=== PATIENT | male | born 1980 ===

== ENCOUNTER 2018-09-27 12:59 | Emergency (ER) | payer OTHER ==
[2018-09-27 13:16] VITALS: BP 109/73; PULSE 79; RESP 18; TEMP 97.8; O2SAT 97; BMI 31.8
--- NOTE | 2018-09-27 13:35 | ED PDOC ---
HPI: Back Time Seen by Provider: 09/27/18 13:15 Chief Complaint (Nursing): Back Pain Chief Complaint (Provider): Back Pain History Per: Patient History/Exam Limitations: no limitations Onset/Duration Of Symptoms: Days (3x months) Current Symptoms Are (Timing): Still Present Severity: Moderate Associated Symptoms: None Additional Complaint(s): 38 year old male with no pertinent past medical history presents to the ED for an evaluation of back pain that has been ongoing for 3x months. Patient reports that he does a pulling motion at work, but has been resting and not working for 3x weeks. Patient reports seeing a chiropractor, but the pain persisted when he returned to work. Patient denies having any falls or injuries, and denies taking oral medication for pain. PMD: None provided Past Medical History Reviewed: Historical Data, Nursing Documentation, Vital Signs Vital Signs: Last Vital Signs Temp 97.8 F 09/27/18 13:14 Pulse 79 09/27/18 13:14 Resp 18 09/27/18 13:14 BP 109/73 09/27/18 13:14 Pulse Ox 97 09/27/18 13:14 DANNA Report Viewed: Yes - Medical History PMH: No Chronic Diseases - Surgical History Surgical History: Appendectomy, Hernia Repair - Family History Family History: States: No Known Family Hx - Social History Current smoker - smoking cessation education provided: No Alcohol: None Drugs: Denies - Immunization History Hx Tetanus Toxoid Vaccination: Yes Hx Influenza Vaccination: No Hx Pneumococcal Vaccination: No - Home Medications Home Medications: Ambulatory Orders Medication Instructions Recorded Meclizine HCl [Antivert/25] 1 tab PO TID PRN #25 tab 05/30/15 Naproxen 375 mg PO Q8 PRN #21 tablet 09/27/18 diaZEpam [Valium] 5 mg PO Q8 PRN #3 tab 09/27/18 - Allergies Allergies/Adverse Reactions: Allergies Allergy/AdvReac Type Severity Reaction Status Date / Time No Known Allergies Allergy Verified 09/03/14 06:54 Review of Systems ROS Statement: Except As Marked, All Systems Reviewed And Found Negative Musculoskeletal: Positive for: Back Pain Physical Exam - Reviewed Nursing Documentation Reviewed: Yes Vital Signs Reviewed: Yes - Physical Exam Appears: Positive for: Well, Non-toxic, No Acute Distress Head Exam: Positive for: ATRAUMATIC, NORMOCEPHALIC Skin: Positive for: Normal Color, Warm, Dry Back: Positive for: Other (paralumbar tenderness noted. (-) focal tenderness) Neurologic/Psych: Positive for: Alert, Oriented (3x) - ECG O2 Sat by Pulse Oximetry: 97 (RA) Pulse Ox Interpretation: Normal Medical Decision Making Medical Decision Makin:15 Initial impression: 38 year old male with back pain Initial plan: * toradol 30 mg IM once * reevaluation Scribe Attestation: Documented by Urvashi Turpin, acting as a scribe for Tahira Bales PA-C. Provider Scribe Attestation: All medical record entries made by the Scribe were at my direction and personally dictated by me. I have reviewed the chart and agree that the record accurately reflects my personal performance of the history, physical exam, medical decision making, and the department course for this patient. I have also personally directed, reviewed, and agree with the discharge instructions and disposition. Disposition - Clinical Impression Clinical Impression: Low back pain - Patient ED Disposition Is Patient to be Admitted: No - Disposition Referrals: [facility] [Outside] Disposition: Routine/Home Disposition Time: 13:16 Condition: FAIR Prescriptions: diaZEpam [Valium] 5 mg PO Q8 PRN #3 tab PRN Reason: Muscle Spasm Naproxen 375 mg PO Q8 PRN #21 tablet PRN Reason: Pain, Moderate (4-7) Instructions: Low Back Pain (DC) Forms: [facility] ED School/Work Excuse Print Language: COLOMBIAN
== END 2018-09-27 14:09 | disposition home or self-care (01) ==
LOC: H.ER 12:59
DX: M54.5 Low back pain (principal)
CPT/HCPCS: 96372; 99283; J1885